=== PATIENT | female | born 1960 | race Two or more races ===

== ENCOUNTER 2024-04-09 16:58 | Emergency (ER) | payer MEDICARE, OTHER ==
[2024-04-09] MEDS: Acetaminophen 500 MG Tab PO ONE (19:59)
== END 2024-04-09 20:39 | disposition home or self-care (01) ==
LOC: MW.ED 16:58
DX: S82.001A Unspecified fracture of right patella, initial encounter for closed fracture (principal); Z75.8 Other problems related to medical facilities and other health care; W01.0XXA Fall on same level from slipping, tripping and stumbling without subsequent striking against object, initial encounter; Y92.838 Other recreation area as the place of occurrence of the external cause
CPT/HCPCS: 73562; 99283; A9270